=== PATIENT | male | born 1950 | race Caucasian/White ===

== ENCOUNTER → 2018-08-06 | Outpatient (CLI) | payer OTHER | END | disposition home or self-care (01) | LOC: SHCH 08:14 | PROVIDERS: ATTEND Internal Medicine Cardiovascular Disease | DX: I25.10 Atherosclerotic heart disease of native coronary artery without angina pectoris (principal) | CPT/HCPCS: 93306 ==

== ENCOUNTER 2022-07-15 05:43 | Day surgery (SDC) | payer OTHER ==
[2022-07-11 13:25] LABS: BASOPHILS % (AUTO) 0.6 % (0.0-5.0); EOSINOPHILS % (AUTO) 0.6 % (0.0-8.0); LYMPHOCYTES % (AUTO) 24.7 % (21.0-51.0); MEAN CORPUSCULAR HGB CONC 33.6 g/dL (32.0-36.0); MEAN CORPUSCULAR VOLUME 89.3 fL (79-99); MONOCYTES % (AUTO) 4.8 % (3.0-13.0); NEUTROPHILS % (AUTO) 68.9 % (40.0-77.0); PLATELET COUNT (AUTO) 159 K/uL (130-400); RED BLOOD CELL COUNT(AUTO) 4.03 MIL/uL (4.50-6.20); RED CELL DISTRIBUTION WIDTH 13.4 % (11.0-15.5); WHITE BLOOD COUNT (AUTO) 4.6 K/uL (4.8-10.8)
[2022-07-11 13:36] LABS: CREATININE 1.9 mg/dL (0.5-1.5); POTASSIUM 4.2 mmol/L (3.5-5.1)
[2022-07-11 13:38] LABS: INR 1.07 (0.85-1.15); PROTHROMBIN TIME 11.6 SEC (9.6-11.6)
[2022-07-11 13:39] LABS: PARTIAL THROMBOPLASTIN TIME 26.8 SEC (26.3-35.5)
[2022-07-12 08:42] VITALS: BP 142/83
[~2022-07-15] VITALS: Ht 172.7 cm; Wt 63.3 kg
[~2022-07-15 05:43] MED LIST: AEC81 PO; AMIO200T68 PO; APIX5TAB PO; ATOR10 PO; LISI20TA24 PO; METF-446 PO; METO25TA6 PO; OMEG-148 PO
[2022-07-15 06:47] VITALS: BP 158/97
[2022-07-15] MEDS ORDERED: LIDOCAINE HCL 1% 20 ML VIAL ONE (07:27)
[2022-07-15] MEDS ORDERED: BUPIVACAINE/PF 0.25% 30ML VIAL IJ ONE (07:27)
[2022-07-15] MEDS ORDERED: 0.9%NACL 1000ML 1,000 ML IV SCH (08:00)
[2022-07-15] MEDS ORDERED: BACITRACIN 1 EACH PACKET TP ONE (08:03)
[2022-07-15] MEDS ORDERED: TRAM50TA4 PO (08:24)
[2022-07-15 08:30] VITALS: BP 159/91
[2022-07-15 08:45] VITALS: BP 148/88
== END 2022-07-15 10:02 | disposition home or self-care (01) ==
LOC: DAH 05:43
PROVIDERS: ATTEND Internal Medicine Cardiovascular Disease
DX: I48.0 Paroxysmal atrial fibrillation (principal); R55 Syncope and collapse; I10 Essential (primary) hypertension; E78.5 Hyperlipidemia, unspecified; I25.10 Atherosclerotic heart disease of native coronary artery without angina pectoris; F03.90 Unspecified dementia, unspecified severity, without behavioral disturbance, psychotic disturbance, mood disturbance, and anxiety; I45.10 Unspecified right bundle-branch block; I25.2 Old myocardial infarction; Z95.5 Presence of coronary angioplasty implant and graft; Z79.82 Long term (current) use of aspirin; Z79.01 Long term (current) use of anticoagulants; Z79.84 Long term (current) use of oral hypoglycemic drugs; Z98.890 Other specified postprocedural states; Z82.49 Family history of ischemic heart disease and other diseases of the circulatory system
CPT/HCPCS: 80048; 85025; 85610; 85730; 36415; 93005; 33285; 82948; A4649; C1764; J7030; J3490; A4215; A4222; A4221; A4663; A4216; A4606; A4223 ×3